=== PATIENT | female | born 1955 | race Caucasian/White ===

== ENCOUNTER 2019-02-06 10:50 | Observation (INO) ==
[2019-02-06 11:29] LABS: Basophils % 0.2 %; Eosinophils # 0.1 K/mcL (0.0-0.6); Eosinophils % 0.9 %; Hematocrit 31.2 % (35.3-44.9); Hemoglobin 9.9 g/dL (11.5-15.4); Immature Granulocytes % 0.4 % (0-4); Lymphocytes # 0.9 K/mcL (0.6-4.6); Lymphocytes % 6.7 %; Mean Corpuscular HGB Conc 31.7 g/dL (31.6-35.5); Mean Corpuscular Hemoglobin 29.5 pg (28.0-33.3); Mean Corpuscular Volume 92.9 fL (83.0-100.0); Mean Platelet Volume 10.6 fL (9.4-12.4); Monocytes # 0.8 K/mcL (0.0-1.3); Monocytes % 6.5 %; Platelet Count 228 K/mcL (140-400); Red Blood Count 3.36 M/mcL (3.82-4.97); Segmented Neutrophils % 85.3 %; White Blood Count 12.9 K/mcL (4.3-11.1)
[2019-02-06 11:37] LABS: INR 1.4
[2019-02-06 11:40] LABS: Activated Partial Thrombo Time 34.6 Seconds (26.0-36.0)
[2019-02-06 11:45] LABS: BUN/Creatinine Ratio 82 (6-26); Blood Urea Nitrogen 32 mg/dL (8-23); Calcium 9.4 mg/dL (8.6-10.3); Carbon Dioxide 33 mEq/L (23-29); Chloride 95 mEq/L (98-107); Glucose 293 mg/dL (70-105); Osmolality,Calculated 296 (280-300); Potassium 4.2 mEq/L (3.5-5.1); Sodium 134 mEq/L (136-145); eGFR For African Americans > 60 (> 60); eGFR For Non-African Americans > 60 (> 60)
[2019-02-06] MEDS ORDERED: 0.9 % Sodium Chloride 1,000 ML IVC ONE (12:22)
[2019-02-06] MEDS ORDERED: Naloxone 0.4 MG/ML INJ IVP PRN (15:55)
[2019-02-06] MEDS ORDERED: Dextrose Gel 15 GM/37.5 ML TUBE PO PRN ×2 (16:26)
[2019-02-06] MEDS ORDERED: *HR* Dextrose 50 % in Water (Syg) 50 ML SYRINGE IVP PRN (16:26)
[2019-02-06] MEDS ORDERED: D5% in Water 1,000 ML IVC PRN (16:26)
[2019-02-06] MEDS: Insulin LISPRO 300 UNITS/3 ML VIAL SQ SCH (17:42)
[2019-02-06] MEDS ORDERED: clonazePAM 0.5 MG TABLET GTUBE PRN (22:14)
[2019-02-06] MEDS ORDERED: *HR* HYDROcodone/Acet 10/325 mg TABLET GTUBE PRN (22:14)
[2019-02-06] MEDS: Famotidine 20 MG TABLET GTUBE SCH (23:12)
[2019-02-07] MEDS ORDERED: Acetaminophen IV 500 MG/50 ML INFUS..BTL IVPB ONE (03:14)
[2019-02-07] MEDS: Furosemide 40 MG TABLET PO SCH (08:33)
[2019-02-07] MEDS: Zinc Sulfate 220 MG CAPSULE GTUBE SCH (08:33)
[2019-02-07] MEDS: Ascorbic Acid 500 MG TABLET GTUBE SCH (08:33)
[2019-02-07] MEDS: Multivitamin Liquid 15 ML UDC GTUBE SCH (08:33)
[2019-02-07] MEDS: Insulin LISPRO 300 UNITS/3 ML VIAL SQ SCH ×3 (08:34→17:05)
[2019-02-07] MEDS: Ferrous Sulfate Oral Soln 300 MG/5 ML UDC GTUBE SCH ×3 (08:34→20:40)
[2019-02-07 09:53] LABS: Basophils % 0.3 %; Eosinophils # 0.1 K/mcL (0.0-0.6); Eosinophils % 1.4 %; Hematocrit 33.2 % (35.3-44.9); Hemoglobin 10.3 g/dL (11.5-15.4); Immature Granulocytes % 0.5 % (0-4); Lymphocytes # 0.9 K/mcL (0.6-4.6); Lymphocytes % 9.1 %; Mean Corpuscular Hemoglobin 29.4 pg (28.0-33.3); Mean Corpuscular Volume 94.9 fL (83.0-100.0); Monocytes # 0.7 K/mcL (0.0-1.3); Monocytes % 7.3 %; Neutrophils # 8.1 K/mcL (1.6-8.9); Platelet Count 212 K/mcL (140-400); Red Cell Distribution Width 15.2 % (11.5-14.5); Segmented Neutrophils % 81.4 %; White Blood Count 9.9 K/mcL (4.3-11.1)
[2019-02-07 10:39] LABS: BUN/Creatinine Ratio 56 (6-26); Blood Urea Nitrogen 18 mg/dL (8-23); Calcium 9.2 mg/dL (8.6-10.3); Carbon Dioxide 25 mEq/L (23-29); Chloride 102 mEq/L (98-107); Glucose 165 mg/dL (70-105); Osmolality,Calculated 294 (280-300); Potassium 3.7 mEq/L (3.5-5.1); Sodium 139 mEq/L (136-145); eGFR For African Americans > 60 (> 60); eGFR For Non-African Americans > 60 (> 60)
[2019-02-07] MEDS: *HR* Heparin 5,000 UNIT/ML VIAL SQ SCH (17:53)
[2019-02-07] MEDS: Famotidine 20 MG TABLET GTUBE SCH (20:40)
[2019-02-08] MEDS: *HR* Heparin 5,000 UNIT/ML VIAL SQ SCH (05:01)
[2019-02-08] MEDS: Ascorbic Acid 500 MG TABLET GTUBE SCH (09:53)
[2019-02-08] MEDS: Ferrous Sulfate Oral Soln 300 MG/5 ML UDC GTUBE SCH ×2 (09:53→16:00)
[2019-02-08] MEDS: Multivitamin Liquid 15 ML UDC GTUBE SCH (09:53)
[2019-02-08] MEDS: Zinc Sulfate 220 MG CAPSULE GTUBE SCH (09:53)
[2019-02-08] MEDS: Furosemide 40 MG TABLET PO SCH (09:54)
[2019-02-08] MEDS: Insulin LISPRO 300 UNITS/3 ML VIAL SQ SCH ×2 (10:00→13:30)
[2019-02-08 13:04] VITALS: BP 165/79
== END 2019-02-08 17:16 ==
LOC: 3BNU 10:50 → EMEROOARM 10:50 → SUATTDRO 15:42 → 3BNU 16:01
PROVIDERS: ADMIT Internal Medicine; ATTEND Internal Medicine